=== PATIENT | female | born 1960 | race Caucasian/White ===

== ENCOUNTER 2021-01-13 17:58 | Emergency (ER) | payer BC, OTHER ==
[2021-01-13] MEDS ORDERED: Aspirin 81 MG Tab.Chew PO ONE (18:12)
[2021-01-13] MEDS ORDERED: Morphine 4 MG/ML Syringe IVPUSH ONE (18:12)
--- NOTE | 2021-01-13 18:14 | PCM.EKG ---
#1 Interpretation EKG Date: 01/13/21 Time: 18:04 Rhythm: NSR Rate (Beats/Min): 74 [place]: Normal P-Wave: Present QRS: Normal ST-T: Normal QT: Normal Comparison: NA - No Prior EKG EKG Interpretation Comments: Sinus Rhythm
--- NOTE | 2021-01-13 18:14 | EDM.PDOC ---
<Niraj Wayne - Last Filed: 01/13/21 19:27> ED HPI GENERAL MEDICAL PROBLEM - General Chief Complaint: Chest Pain Stated Complaint: CHEST PAIN Time Seen by Provider: 01/13/21 18:11 - History of Present Illness INITIAL COMMENTS - FREE TEXT/NARRATIVE: CHIEF COMPLAINT(S): Chest pain HISTORY OF PRESENT ILLNESS: This is a 60-year-old woman without any significant past medical history who comes to the emergency department with a chief complaint of chest pain. The patient states that approximately 30 minutes prior to arrival she started to experience chest pain while she was sitting at her desk. She describes the pain as pressure and sharp located on the mid to the left side of her chest rated 7 out of 10 with radiation into her left arm. She states that the arm is not painful but does feel numb. She states that she has additionally bilateral hand tingling. She denies any radiation to the back. She states that she does feel short of breath and it is hard to take a deep breath. She denies any diaphoresis, nausea, vomiting, recent travel, recent surgery, prior history of DVT or PE. She denies any history of CAD or CHF. She states that she was told that she had hypertension however every time she goes to her primary care clinic that her blood pressure is normal. She states that she has never had pain like this before. She states that this pain is not worse with exertion. There are no relieving factors. She states that she does have a history of indigestion however this does not feel like that. REVIEW OF SYSTEMS: Constitutional: Denies fever, chills. Eyes: Denies eye pain Ears, Nose, Mouth, & Throat: Denies earache Cardiovascular: Positive for chest pain Respiratory: Positive for shortness of breath Gastrointestinal: Denies Nausea, vomiting, diarrhea, hematochezia. Genitourinary: Denies hematuria Skin:Denies a rash MSK: Denies joint pain Neurological: Positive for left arm tingling and numbness. Denies blurred vision, headache, double vision, weakness Psychiatric: Denies depression PAST MEDICAL HISTORY: As per history of present illness and as reviewed below otherwise noncontributory. SURGICAL HISTORY: As per history of present illness and as reviewed below otherwise noncontributory. SOCIAL HISTORY: As per history of present illness and as reviewed below otherwise noncontributory. FAMILY HISTORY: As per history of present illness and as reviewed below otherwise noncontributory. EXAMINATION OF ORGAN SYSTEMS/BODY AREAS: Constitutional: Blood pressure on my evaluation was 187/88, heart rate 77, respiratory rate 18 with an oxygen saturation of 98% on room air. Temperature 37.1 General: Middle-aged woman who does not appear to be in acute distress Psychiatric: Appropriate mood and affect. Eyes: No scleral icterus or conjunctival erythema ENMT: Moist mucous membranes. No pharyngeal erythema Cardiovascular: Regular, rate, and rhythm. No gallops, murmurs, or rubs. Bilateral upper extremity pulses symmetric and intact. No peripheral edema. No JVD. Respiratory: Lungs clear to auscultation bilaterally. No wheezes, rales, or rhonchi. Gastrointestinal: Soft, non-tender, non-distended. Normoactive bowel sounds Genitourinary: No suprapubic tenderness Musculoskeletal: Normal range of motion. Skin: No lesions or abrasions. Neurological: AOx4.Stregth 5/5 in bilateral upper and lower extremity. Sensation is intact bilaterally in upper and lower extremity. Gait appears normal. MEDICAL DECISION MAKING AND COURSE IN THE ED WITH INTERPRETATION/REVIEW OF DIAGNOSTIC STUDIES: This is a 60-year-old man without any significant past medical history who comes to the emergency department with acute onset left- sided chest pain with radiation to left arm and shortness of breath who is hypertensive with otherwise stable vital signs. At this time we did place the patient on cardiac monitoring and pulse oximetry. Cardiac monitoring did reveal sinus rhythm and pulse oximetry with good waveform was 98% on room air. EKG was obtained which did not reveal any acute signs of ischemia. At this time differential includes ACS, pneumonia, Covid, pneumothorax. Differential also includes aortic dissection however patient has no other classic symptoms such as chest pain radiating to the back and does not have any pulse deficits. This is lower on the differential and we will obtain a D-dimer for a stratification for need for CTA.. She was amenable to this plan. At this time we will obtain a cardiac work-up including CBC, BMP, magnesium, troponin, TSH. Will obtain a chest x-ray. We will provide the patient with aspirin and morphine. Heart Score History: Moderately Suspicious (1) ECG: Normal (0) Age: 45-64 (1) Risk Factors: No known risk factors (0) Initial Troponin: </= normal limit (0) Total Score: 2 Laboratory: CBC is unremarkable. D-dimer is normal. INR is normal. BMP is unremarkable. Troponin is negative. TSH is normal. Patient was signed out to oncoming night team of attention pending delta troponin. DISPOSITION: Patient was signed out to oncoming team physician pending chest x- ray and final disposition with repeat troponin CONDITION: Fair PROCEDURES: Cardiac monitoring interpretation, pulse oximetry interpretation FINAL IMPRESSION(S)/DIAGNOSES: 1. Acute chest pain Niraj Wayne M.D. Left Chest Pain Score (Numeric/FACES): 7 - Related Data Allergies Allergy/AdvReac Type Severity Reaction Status Date / Time Bandaids Allergy Redness Uncoded 01/13/21 18:08 Home Meds: Home Meds Omeprazole [priLOSEC OTC] 1 tab PO 02/20/15 [History] Past Medical History Other Gastrointestinal History: Dysphagia Other Musculoskeletal History: hx: fracturing finger Departure - Departure Disposition: Home, Self-Care 01 Clinical Impression: Chest pain - Discharge Information Instructions: Nonspecific Chest Pain, Adult, [id number] Forms: ED Department Discharge Additional Instructions: The following information is given to patients seen in the emergency department who are being discharged to home. This information is to outline your options for follow-up care. We provide all patients seen in our emergency department with a follow-up referral. The need for follow-up, as well as the timing and circumstances, are variable depending upon the specifics of your emergency department visit. If you don't have a primary care physician on staff, we will provide you with a referral. We always advise you to contact your personal physician following an emergency department visit to inform them of the circumstance of the visit and for follow-up with them and/or the need for any referrals to a consulting specialist. The emergency department will also refer you to a specialist when appropriate. This referral assures that you have the opportunity for follow-up care with a specialist. All of these measure are taken in an effort to provide you with optimal care, which includes your follow-up. Under all circumstances we always encourage you to contact your private physician who remains a resource for coordinating your care. When calling for follow-up care, please make the office aware that this follow-up is from your recent emergency room visit. If for any reason you are refused follow-up, please contact the [facility] Emergency Department at and asked to speak to the emergency department charge nurse. Please follow up with your primary care physician. If you do not have a primary care physician, see below: [facility] [address] [place], [place] [address] [facility] [address] [place], [place] [id number] [facility] [address] [place] [address] You were seen today for chest pain. We did x-rays labs and EKG that were within normal limits. We checked her troponins x2 and was negative. He also had a very low heart score which puts her at a low risk to have any major adverse cardiac events. We do want you to follow-up with a plunger shovel operator or your primary care physician for further test if you have any other concerning signs symptoms please return to the ED immediately. Sepsis Event Note (ED) - Evaluation Sepsis Screening Result: No Definite Risk <Rakesh Grissom - Last Filed: 01/13/21 22:19> ED ROS GENERAL - Review of Systems Review Of Systems: See Below ED EXAM, GENERAL - Physical Exam Exam: See Below Course - Vital Signs Last Recorded V/S: Last Vital Signs Temp 98.7 F 01/13/21 18:08 Pulse 79 01/13/21 20:08 Resp 13 01/13/21 20:08 BP 183/84 H 01/13/21 20:08 Pulse Ox 97 01/13/21 20:08 - Orders/Labs/Meds Orders: Active Orders 24 hr Category Date Time Status Cardiac Monitoring [RC] . DIRECTED Care 01/13/21 18:12 Active Pulse Oximetry [RC] ASDIRECTED Care 01/13/21 18:12 Active Labs: Laboratory Tests 01/13/21 01/13/21 01/13/21 Range/Units 18:05 18:05 18:05 WBC 10.41 (4.0-11.0) K/uL RBC 5.32 (4.30-5.90) M/uL Hgb 15.6 (12.0-16.0) g/dL Hct 46.0 (36.0-46.0) % MCV 86.5 (80.0-98.0) fL MCH 29.3 (27.0-32.0) pg MCHC 33.9 (31.0-37.0) g/dL RDW Std Deviation 41.0 (28.0-62.0) fl RDW Coeff of Stacey 13 (11.0-15.0) % Plt Count 329 (150-400) K/uL MPV 9.70 (7.40-12.00) fL Neut % (Auto) 55.3 (48.0-80.0) % Lymph % (Auto) 34.9 (16.0-40.0) % Loving % (Auto) 5.9 (0.0-15.0) % Eos % (Auto) 3.6 (0.0-7.0) % Baso % (Auto) 0.3 (0.0-1.5) % Neut # (Auto) 5.8 H (1.4-5.7) K/uL Lymph # (Auto) 3.6 H (0.6-2.4) K/uL Loving # (Auto) 0.6 (0.0-0.8) K/uL Eos # (Auto) 0.4 (0.0-0.7) K/uL Baso # (Auto) 0.0 (0.0-0.1) K/uL Nucleated RBC % 0.0 /100WBC Nucleated RBCs # 0 K/uL INR 0.93 D-Dimer, Quantitative (0.0-0.50) mg/L FEU Sodium 140 (136-145) mmol/L Potassium 3.6 (3.5-5.1) mmol/L Chloride 101 (98-107) mmol/L Carbon Dioxide 30.3 (21.0-32.0) mmol/L BUN 20 H (7.0-18.0) mg/dL Creatinine 1.0 (0.6-1.0) mg/dL Est Cr Clr Drug Dosing 54.51 mL/min Estimated GFR (MDRD) 56.7 ml/min Glucose 115 H (74-106) mg/dL Calcium 8.6 (8.5-10.1) mg/dL Magnesium 2.3 (1.8-2.4) mg/dL Creatine Kinase (26-308) U/L Troponin I < 0.050 (0.000-0.056) ng/mL TSH, Ultra Sensitive 1.54 (0.36-3.74) uIU/mL SARS-CoV-2 RNA (ANTONIO) (NEGATIVE) 01/13/21 01/13/21 01/13/21 Range/Units 18:05 18:32 21:12 WBC (4.0-11.0) K/uL RBC (4.30-5.90) M/uL Hgb (12.0-16.0) g/dL Hct (36.0-46.0) % MCV (80.0-98.0) fL MCH (27.0-32.0) pg MCHC (31.0-37.0) g/dL RDW Std Deviation (28.0-62.0) fl RDW Coeff of Stacey (11.0-15.0) % Plt Count (150-400) K/uL MPV (7.40-12.00) fL Neut % (Auto) (48.0-80.0) % Lymph % (Auto) (16.0-40.0) % Loving % (Auto) (0.0-15.0) % Eos % (Auto) (0.0-7.0) % Baso % (Auto) (0.0-1.5) % Neut # (Auto) (1.4-5.7) K/uL Lymph # (Auto) (0.6-2.4) K/uL Loving # (Auto) (0.0-0.8) K/uL Eos # (Auto) (0.0-0.7) K/uL Baso # (Auto) (0.0-0.1) K/uL Nucleated RBC % /100WBC Nucleated RBCs # K/uL INR D-Dimer, Quantitative 0.37 (0.0-0.50) mg/L FEU Sodium (136-145) mmol/L Potassium (3.5-5.1) mmol/L Chloride (98-107) mmol/L Carbon Dioxide (21.0-32.0) mmol/L BUN (7.0-18.0) mg/dL Creatinine (0.6-1.0) mg/dL Est Cr Clr Drug Dosing mL/min Estimated GFR (MDRD) ml/min Glucose (74-106) mg/dL Calcium (8.5-10.1) mg/dL Magnesium (1.8-2.4) mg/dL Creatine Kinase 45 (26-308) U/L Troponin I < 0.050 (0.000-0.056) ng/mL TSH, Ultra Sensitive (0.36-3.74) uIU/mL SARS-CoV-2 RNA (ANTONIO) NEGATIVE (NEGATIVE) Meds: Medications Discontinued Medications Generic Name Dose Route Start Last Admin Trade Name Freq PRN Reason Stop Dose Admin Aspirin 324 mg 01/13/21 18:12 01/13/21 18:25 Aspirin 81 Mg Tab.Chew PO 01/13/21 18:13 324 mg ONETIME ONE Administration Morphine Sulfate 4 mg 01/13/21 18:12 01/13/21 18:25 Morphine 4 Mg/Ml Syringe IVPUSH 01/13/21 18:13 4 mg ONETIME ONE Administration - Re-Assessments/Exams Free Text/Narrative Re-Assessment/Exam: 01/13/21 22:18 Patient D-dimer is negative unlikely having a dissection. Patient tropes are negative x2 patient has been chest pain-free since 7:00 will be discharged home to follow-up with PMD and cardiology. Departure - Departure Time of Disposition: 22:18 Condition: Good - Discharge Information *PRESCRIPTION DRUG MONITORING PROGRAM REVIEWED*: Not Applicable *COPY OF PRESCRIPTION DRUG MONITORING REPORT IN PATIENT MATT: Not Applicable Sepsis Event Note (ED) - Focused Exam Vital Signs: Vital Signs Temp Pulse Resp BP Pulse Ox 01/13/21 20:08 79 13 183/84 H 97 01/13/21 18:58 70 15 187/88 H 98 01/13/21 18:31 81 17 187/88 H 97 01/13/21 18:08 98.7 F 77 18 212/103 H 98
[2021-01-13 18:48] LABS: BLOOD UREA NITROGEN,BUN 20 mg/dL (7.0-18.0); CARBON DIOXIDE,CO2 30.3 mmol/L (21.0-32.0); CHLORIDE,CL 101 mmol/L (98-107); GLUCOSE RANDOM 115 mg/dL (74-106); POTASSIUM,K 3.6 mmol/L (3.5-5.1); SODIUM,NA 140 mmol/L (136-145)
--- NOTE | 2021-01-13 19:37 | CR ---
INDICATION: chest pain CHEST, ONE VIEW An AP radiograph of the chest was performed. Comparison: No previous studies are currently available for comparison. The lungs appear clear and no pleural effusions are identified. The cardiomediastinal silhouette and pulmonary vasculature appear normal, as do the visualized bones. IMPRESSION: No acute intrathoracic abnormality identified. LUCINDA ÁLVAREZ MD [facility] Dictated by: Dinesh Álvarez MD @ 01/13/2021 19:36:17 (Electronically Signed)
[2021-01-13 22:29] VITALS: BP 162/94; PULSE 75
== END 2021-01-13 22:29 | disposition home or self-care (01) ==
LOC: MW.ED 17:58
DX: R07.9 Chest pain, unspecified (principal); Z91.048 Other nonmedicinal substance allergy status; Z79.899 Other long term (current) drug therapy; Z20.822 Contact with and (suspected) exposure to COVID-19
CPT/HCPCS: 36415; 71045; 80048; 82550; 83735; 84443; 84484; 85025; 85379; 85610; 87635; 93005; 96374; 99285; A9270; J2270; U0002

== ENCOUNTER 2023-05-24 07:49 | Day surgery (SDC) | payer OTHER ==
[~2023-05-24 07:49] MED LIST: Sodium Chloride 0.9% 10 ML Syringe FLUSH PRN; Sodium Chloride 0.9% 2.5 ML Syringe FLUSH PRN; Sodium Chloride 0.9% 20 ML SDV IV PRN
[2023-05-24] MEDS: Lactated Ringers 1,000 ML IV SCH (08:20)
[2023-05-24] MEDS ORDERED: propofoL 50 ML ONE ×2 (08:40→09:18)
[2023-05-24] MEDS ORDERED: Water For Injection, Sterile 20 ML ONE (08:54)
[2023-05-24] MEDS ORDERED: dexmedeTOMIDine HCl 200 MCG/2 ML SDV ONE (08:55)
[2023-05-24 12:50] VITALS: BP 103/65; PULSE 73
== END 2023-05-24 10:25 | disposition home or self-care (01) ==
LOC: MW.SDS 07:49
PROVIDERS: ATTEND Surgery
DX: Z12.11 Encounter for screening for malignant neoplasm of colon (principal); K31.7 Polyp of stomach and duodenum; K29.50 Unspecified chronic gastritis without bleeding; K22.719 Barrett's esophagus with dysplasia, unspecified; K21.9 Gastro-esophageal reflux disease without esophagitis; K44.9 Diaphragmatic hernia without obstruction or gangrene; K57.30 Diverticulosis of large intestine without perforation or abscess without bleeding; G47.33 Obstructive sleep apnea (adult) (pediatric); I10 Essential (primary) hypertension; E66.9 Obesity, unspecified; Z68.34 Body mass index [BMI] 34.0-34.9, adult; Z86.010 Personal history of colon polyps; Z87.891 Personal history of nicotine dependence; Z80.0 Family history of malignant neoplasm of digestive organs; Z79.899 Other long term (current) drug therapy
CPT/HCPCS: 43239; 45385; J2704; J7120; 00813; J3490